=== PATIENT | female | born 1960 | race African-American/Black ===

== ENCOUNTER 2017-06-17 14:41 | Emergency (ER) | payer SELFPAY ==
[2017-06-17] MEDS: SOD CHLORIDE 0.9% 500 ML IV (16:20)
[2017-06-17] MEDS: FAMOTIDINE 20 MG INJ IV (16:20)
[2017-06-17] MEDS: DIPHENHYDRAMINE 50 MG INJ IV (16:20)
[2017-06-17] MEDS: METHYLPREDNISOLONE 125 MG INJ IV (16:20)
== END 2017-06-17 17:50 | disposition home or self-care (01) ==
LOC: FTE 14:41
DX: R22.0 Localized swelling, mass and lump, head (principal)
CPT/HCPCS: 96374; 96375; 99284-25

== ENCOUNTER 2019-01-03 22:24 | Emergency (ER) | payer SELFPAY ==
[2019-01-03] MEDS: FAMOTIDINE 20 MG TAB PO (23:18)
[2019-01-03] MEDS: KETOROLAC 30 MG INJ IM (23:19)
[2019-01-04 00:01] LABS: ADD MAN DIFF? NO
[2019-01-04 00:04] LABS: BASOPHILS % 0.5 % (0.0-2.0); EOSINOPHILS # 0.2 10^3/ul (0.0-0.5); EOSINOPHILS % 4.2 % (0.0-7.0); HEMATOCRIT 35.8 % (37.0-47.0); HEMOGLOBIN 11.5 g/dl (12.0-16.0); LYMPHOCYTES # 1.4 10^3/ul (0.8-2.9); LYMPHOCYTES % 36.7 % (15.0-51.0); MEAN CORPUSCULAR HEMOGLOBIN 29.3 pg (29.0-33.0); MEAN CORPUSCULAR HGB CONC 32.1 g/dl (32.0-37.0); MEAN CORPUSCULAR VOLUME 91.1 fl (82.0-101.0); MEAN PLATELET VOLUME 10.5 fl (7.4-10.4); MONOCYTE # 0.4 10^3/ul (0.3-0.9); MONOCYTES % 9.6 % (0.0-11.0); NEUTROPHIL # 1.9 10^3/ul (1.6-7.5); NEUTROPHILS % 48.7 % (39.0-77.0); PLATELET COUNT 216 10^3/UL (140-415); RED BLOOD COUNT 3.93 10^6/ul (4.20-5.40); RED CELL DISTRIBUTION WIDTH 13.2 % (11.5-14.5)
[2019-01-04 00:04] LABS: WHITE BLOOD COUNT 3.8 10^3/ul (4.8-10.8)
[2019-01-04 00:23] LABS: ALANINE AMINOTRANSFERASE 24 IU/L (13-69); ALBUMIN/GLOBULIN RATIO 1.17; ALKALINE PHOSPHATASE 48 IU/L (42-121); ANION GAP 6 (5-13); ASPARTATE AMINO TRANSFERASE 27 IU/L (15-46); BILIRUBIN,INDIRECT 0.3 mg/dl (0-1.1); BILIRUBIN,TOTAL 0.3 mg/dl (0.2-1.3); BLOOD UREA NITROGEN 20 mg/dl (7-20); CALCIUM 9.4 mg/dl (8.4-10.2); CARBON DIOXIDE 28 mmol/L (21-31); CHLORIDE 106 mmol/L (97-110); CREATININE 0.83 mg/dl (0.44-1.00); Estimated GFR > 60 mL/min (>60); GLUCOSE 101 mg/dl (70-220); INR 0.97; POTASSIUM 4.4 mmol/L (3.5-5.1); SODIUM 140 mmol/L (135-144); TOTAL PROTEIN 7.4 g/dl (6.1-8.1)
[2019-01-04 00:24] LABS: PARTIAL THROMBOPLASTIN TIME 27.9 Sec (23.0-35.0)
[2019-01-04 00:34] LABS: TROPONIN-I < 0.012 ng/ml (0.000-0.120)
== END 2019-01-04 02:02 | disposition home or self-care (01) ==
LOC: FTE 01-04 02:02
DX: M54.12 Radiculopathy, cervical region (principal); R20.2 Paresthesia of skin; M54.41 Lumbago with sciatica, right side
CPT/HCPCS: 70450; 80053; 84484; 85025; 85610; 85730; 93005; 96372; 99285-25